=== PATIENT | female | born 1925 | race Caucasian/White ===

== ENCOUNTER 2017-02-21 12:20 | Emergency (ER) | payer MEDICARE ==
[~2017-02-21] VITALS: Ht 154.9 cm; Wt 74.0 kg
[~2017-02-21 12:20] MED LIST: ALBU0.08 NEB; AMLO5TAB2 PO; FLEC100T PO; FOSA70TA PO; LEVO75TA3 PO; LIPI20TA PO; LOSA100T PO; MULTTAB67 PO; SYMB80AE INH; TEMA30CA PO; TRAM50TA PO; VITA400T18 PO; VITA500T83 PO
[2017-02-21 12:22] VITALS: BP 130/74; PULSE 100; RESP 18; TEMP 98.1; O2SAT 96
[2017-02-21] MEDS ORDERED: SODIUM CHLORID 0.9% 500 ML INJ 500 ML IV ONE (13:00)
--- NOTE | 2017-02-21 13:01 | PD ---
HPI Chief Complaint: Abdominal Pain Time Seen by Provider: 12:31 Travel History International Travel<30 days: No Contact w/Intl Traveler<30days: No Traveled to known affect area: No History of Present Illness HPI 89-year-old female that presents to the ED for evaluation of abdominal pain. Per patient's in the mid epigastric area. Per patient does not go anywhere. Per patient she's had this since . Feels bloated and painful. Per patient the pain is 7 out of 10. Gets worse with touch and comes and goes. Per patient she currently has it. She denies any changes in bowel movement with the exception of fall on when she had slight diarrhea with the episode of liquid stool. Per patient her stools have been hard since. She does take Tylenol for pain chronically. She states that she has not seen any blood or changes in the consistency of the stool other than on when he was liquidy but not red or dark. She denies any dark stools. She denies any nausea or vomiting. She does state that she ate some slimy sandwich as well as some meatballs and the discomfort started after this. She has not taken anything for it. She has not seen anybody for it. She denies any fevers chills or sweats. No cough or runny nose. No chest pain or shortness of breath. No other medical issues at this time. Allergies to sulfa, adhesives, latex and penicillin. PFSH Past Medical History Hx Anticoagulant Therapy: Yes Asthma: Yes Atrial Fibrillation: Yes Diabetes: No Diminished Hearing: No Gastrointestinal Disorders: Yes (HX OF C. DIFF) Glaucoma: No Hepatitis: No Hypertension: Yes Kidney Stones: No Renal Failure: No Thyroid Disease: No Ulcer: No Past Surgical History Insulin Pump: No Joint Replacement: Yes (right hip, LEFT HIP) Tonsillectomy: Yes Social History Alcohol Use: Yes (WINE MOST DAYS) Tobacco Use: No Substance Use: No Allergies-Medications (Allergen,Severity, Reaction): Coded Allergies: Sulfa (Sulfonamide Antibiotics) (Verified Allergy, Severe, 02/21/17) adhesive (Verified Allergy, Severe, Hives, 02/21/17) latex (Verified Allergy, Severe, Hives, 02/21/17) penicillin G (Verified Allergy, Severe, 02/21/17) Reported Meds & Prescriptions Reported Meds & Active Scripts Active Zofran (Ondansetron HCl) 4 Mg Tab 4 Mg PO Q6HR PRN Cipro (Ciprofloxacin HCl) 500 Mg Tab 500 Mg PO BID 10 Days Bentyl (Dicyclomine HCl) 10 Mg Cap 10 Mg PO TID PRN Flagyl (Metronidazole) 500 Mg Tab 500 Mg PO BID 10 Days Reported Vitamin C ER (Ascorbic Acid) 500 Mg Ese 500 Mg PO DAILY Tramadol (Tramadol HCl) 50 Mg Tab 100 Mg PO PRN PRN Vitamin E (Vitamin E Acid Succinate) 400 Unit Tablet 1 Tab PO DAILY Fosamax (Alendronate Sodium) 70 Mg Tab 1 Tab PO Q7D Multiple Vitamin 1 Tab 1 Tab PO DAILY Symbicort Inh (Budesonide/Formoterol Fumarate) 80-4.5 Mcg/Act Aero 1 Puff INH Q12HR Lipitor (Atorvastatin Calcium) 20 Mg Tab 1 Tab PO HS Losartan (Losartan Potassium) 100 Mg Tab 1 Tab PO DAILY Amlodipine (Amlodipine Besylate) 5 Mg Tab 1 Tab PO DAILY Flecainide (Flecainide Acetate) 100 Mg Tab 1 Tab PO BID Levothyroxine (Levothyroxine Sodium) 75 Mcg Tab 1 PO DAILY Review of Systems Except as stated in HPI: all other systems reviewed are Neg Physical Exam Narrative GENERAL: SKIN: Warm and dry. HEAD: Atraumatic. Normocephalic. EYES: Pupils equal and round. No scleral icterus. No injection or drainage. ENT: No nasal bleeding or discharge. Mucous membranes pink and moist. Tongue is midline. No uvula deviation. NECK: Trachea midline. No JVD. CARDIOVASCULAR: Regular rate and rhythm. RESPIRATORY: No accessory muscle use. Clear to auscultation. Breath sounds equal bilaterally. GASTROINTESTINAL: Abdomen soft, tender to touch in the mid gastric area around the umbilical area, nondistended. Hepatic and splenic margins not palpable. MUSCULOSKELETAL: Extremities without clubbing, cyanosis, or edema. No obvious deformities. Full range of motion of the upper and lower extremities bilaterally. 2+ pulses bilaterally. NEUROLOGICAL: Awake and alert. No obvious cranial nerve deficits. Motor grossly within normal limits. Five out of 5 muscle strength in the arms and legs. Normal speech. PSYCHIATRIC: Appropriate mood and affect; insight and judgment normal. Data Data Last Documented VS Vital Signs Date Time Temp Pulse Resp B/P (MAP) Pulse Ox O2 Delivery O2 Flow Rate FiO2 12/24/17 13:48 97 Room Air 02/21/17 12:36 18 02/21/17 12:22 98.1 100 Orders Orders Complete Blood Count With Diff (02/21/17 12:46) Comprehensive Metabolic Panel (02/21/17 12:46) Lipase (02/21/17 12:46) Lactic Acid (02/21/17 12:46) Prothrombin Time / Inr (Pt) (02/21/17 12:46) Act Partial Throm Time (Ptt) (02/21/17 12:46) Urinalysis - C+S If Indicated (02/21/17 12:46) Ct Abd/Pel W Iv Contrast(Rout) (02/21/17 12:46) Iv Access Insert/Monitor (02/21/17 12:46) Ecg Monitoring (02/21/17 12:46) Oximetry (02/21/17 12:46) Electrocardiogram (02/21/17 12:46) Sodium Chlorid 0.9% 500 Ml Inj (Ns 500 M (02/21/17 13:00) Iohexol 350 Inj (Omnipaque 350 Inj) (02/21/17 15:04) Metronidazole 500 Mg Inj (Flagyl 500 Mg (02/21/17 15:45) Ciprofloxacin 400 Mg Premix (Cipro 400 M (02/21/17 15:45) Ed Discharge Order (02/21/17 15:48) Labs Laboratory Tests Test 02/21/17 12:48 02/21/17 12:49 Lactic Acid Level 0.9 mmol/L White Blood Count 10.2 TH/MM3 Red Blood Count 4.36 MIL/MM3 Hemoglobin 14.3 GM/DL Hematocrit 42.1 % Mean Corpuscular Volume 96.4 FL Mean Corpuscular Hemoglobin 32.8 PG Mean Corpuscular Hemoglobin Concent 34.0 % Red Cell Distribution Width 12.9 % Platelet Count 221 TH/MM3 Mean Platelet Volume 8.4 FL Neutrophils (%) (Auto) 80.1 % Lymphocytes (%) (Auto) 12.8 % Monocytes (%) (Auto) 5.4 % Eosinophils (%) (Auto) 0.8 % Basophils (%) (Auto) 0.9 % Neutrophils # (Auto) 8.2 TH/MM3 Lymphocytes # (Auto) 1.3 TH/MM3 Monocytes # (Auto) 0.5 TH/MM3 Eosinophils # (Auto) 0.1 TH/MM3 Basophils # (Auto) 0.1 TH/MM3 CBC Comment AUTO DIFF Differential Comment AUTO DIFF CONFIRMED Prothrombin Time 10.5 SEC Prothromb Time International Ratio 1.0 RATIO Activated Partial Thromboplast Time 29.2 SEC Blood Urea Nitrogen 14 MG/DL Creatinine 0.96 MG/DL Random Glucose 99 MG/DL Total Protein 6.9 GM/DL Albumin 3.4 GM/DL Calcium Level 9.2 MG/DL Alkaline Phosphatase 74 U/L Aspartate Amino Transf (AST/SGOT) 16 U/L Alanine Aminotransferase (ALT/SGPT) 20 U/L Total Bilirubin 0.8 MG/DL Sodium Level 140 MEQ/L Potassium Level 4.2 MEQ/L Chloride Level 107 MEQ/L Carbon Dioxide Level 27.3 MEQ/L Anion Gap 6 MEQ/L Estimat Glomerular Filtration Rate 55 ML/MIN Lipase 161 U/L MDM Medical Decision Making Medical Screen Exam Complete: Yes Emergency Medical Condition: Yes Medical Record Reviewed: Yes Interpretation(s) Last Impressions Abdomen/Pelvis CT 02/21/17 1246 Signed Impressions: Service Date/Time: Tuesday, February 21, 2017 14:54 - CONCLUSION: 1. Acute diverticulitis of the mid sigmoid colon. No evidence of adrenal abscess or free air. 2. Left lobe hepatic enhancing lesion very likely to represent a hemangioma. Unchanged in size from prior noncontrast CT of 2014. Kobi Kaur MD CBC & BMP Diagram 02/21/17 12:49 Total Protein 6.9, Albumin 3.4, Calcium Level 9.2, Alkaline Phosphatase 74, Aspartate Amino Transf (AST/SGOT) 16, Alanine Aminotransferase (ALT/SGPT) 20, Total Bilirubin 0.8 Lipase within normal limits. Differential Diagnosis Abdominal pain versus constipation versus obstruction versus partial obstruction versus gastroenteritis versus pancreatitis versus appendicitis Narrative Course 89-year-old female that presents to the ED for evaluation of abdominal pain. Patient was properly examined and was found to have signs and symptoms consistent appears to be abdominal pain. Unclear etiology at this time. Patient does appear to be significantly tender on exam. Her abdomen otherwise is benign. This time I recommend labs and imaging. Patient agrees with this. Labs and imaging were positive for mild diverticulitis. This time no sign of acute disease otherwise. Patient appears to be benign and her physical exam is for the most part reassuring. My attending Dr. Diana evaluated the patient and agrees with discharge. This time patient was given a dose of IV Flagyl and Cipro and a prescription for this medications as well. Patient was given prescription for Bentyl and Zofran to help with her symptoms. She was told that she needs to follow-up closely with PCP. See ED for any worsening symptoms. She agrees with plan. Diagnosis Primary Impression: Diverticulitis Patient Instructions: General Instructions Additional Instructions: Take medications as prescribed. Follow with PCP. See ED worsening symptoms. Liquid diet as needed. Med/Other Pt SpecificInfo: Prescription(s) given Scripts Ondansetron (Zofran) 4 Mg Tab 4 MG PO Q6HR Y for NAUSEA OR VOMITING, #15 TAB 0 Refills Prov: Jeremias Diana MD 02/21/17 Ciprofloxacin (Cipro) 500 Mg Tab 500 MG PO BID for Infection for 10 Days, #20 TAB 0 Refills Prov: Jeremias Diana MD 02/21/17 Dicyclomine (Bentyl) 10 Mg Cap 10 MG PO TID Y for Bowel Management, #15 CAP 0 Refills Prov: Jeremias Diana MD 02/21/17 Metronidazole (Flagyl) 500 Mg Tab 500 MG PO BID for Infection for 10 Days, #20 TAB 0 Refills Prov: Jeremias Diana MD 02/21/17 Disposition: 01 DISCHARGE HOME Condition: Stable Flako Krause Feb 21, 2017 13:01
[2017-02-21 13:09] LABS: AUTOMATED NEUTROPHIL # 8.2 TH/MM3 (1.8-7.7); BASOPHIL # 0.1 TH/MM3 (0-0.2); BASOPHIL % 0.9 % (0.0-2.0); EOSINOPHIL # 0.1 TH/MM3 (0-0.4); EOSINOPHIL % 0.8 % (0.0-4.0); HEMATOCRIT 42.1 % (35.0-46.0); HEMOGLOBIN 14.3 GM/DL (11.6-15.3); LYMPH % 12.8 % (9.0-44.0); LYMPHOCYTE # 1.3 TH/MM3 (1.0-4.8); MEAN CELL VOLUME 96.4 FL (80.0-100.0); MEAN CORPUSCULAR HEMOGLOBIN 32.8 PG (27.0-34.0); MEAN PLATELET VOLUME 8.4 FL (7.0-11.0); MONO % 5.4 % (0.0-8.0); MONOCYTE # 0.5 TH/MM3 (0-0.9); NEUT % 80.1 % (16.0-70.0); PLATELET COUNT 221 TH/MM3 (150-450); RED BLOOD COUNT 4.36 MIL/MM3 (4.00-5.30); RED CELL DISTRIBUTION WIDTH 12.9 % (11.6-17.2); WHITE BLOOD COUNT 10.2 TH/MM3 (4.0-11.0)
[2017-02-21 13:10] LABS: PROTHROMBIN TIME - PATIENT 10.5 SEC (9.8-11.6)
[2017-02-21 13:19] LABS: ALBUMIN 3.4 GM/DL (3.4-5.0); ALT (GPT) 20 U/L (10-53); AST (GOT) 16 U/L (15-37); BICARBONATE 27.3 MEQ/L (21.0-32.0); BLOOD UREA NITROGEN 14 MG/DL (7-18); CALCIUM 9.2 MG/DL (8.5-10.1); CHLORIDE 107 MEQ/L (98-107); CREATININE 0.96 MG/DL (0.50-1.00); GLOMERULAR FILTRATION RATE 55 ML/MIN (>89); GLUCOSE,RANDOM 99 MG/DL (74-106); LIPASE 161 U/L (73-393); SODIUM (NA) 140 MEQ/L (136-145)
[2017-02-21 13:21] LABS: ALKALINE PHOSPHATASE 74 U/L (45-117); TOTAL BILIRUBIN ADULT 0.8 MG/DL (0.2-1.0); TOTAL PROTEIN 6.9 GM/DL (6.4-8.2)
[2017-02-21 13:48] VITALS: O2SAT 97
[2017-02-21] MEDS ORDERED: IOHEXOL 350 MG/ML 10 ML VIAL (for RAD DIAG) IVCONTRAST ONE (15:04)
--- NOTE | 2017-02-21 15:25 | RADRPT ---
EXAM DATE/TIME: 02/21/2017 14:54 [facility] COMPARISON: CT ABDOMEN & PELVIS W/O CONTRAST, February 18, 2015, 7:53. INDICATIONS : Umbilical abdomen pain for four days. IV CONTRAST: 80 cc Omnipaque 350 (iohexol) IV ORAL CONTRAST: No oral contrast ingested. RADIATION DOSE: 10.73 CTDIvol (mGy) MEDICAL HISTORY : Hypertension. SURGICAL HISTORY : Bilateral hip replacements. ENCOUNTER: Initial ACUITY: 4 - 6 days PAIN SCALE: 8/10 LOCATION: abdomen TECHNIQUE: Volumetric scanning of the abdomen and pelvis was performed. Using automated exposure control and ad justment of the mA and/or kV according to patient size, radiation dose was kept as low as reasonably achievable to obtain optimal diagnostic quality images. DICOM format image data is available electro nically for review and comparison. FINDINGS: LOWER LUNGS: Minimal atelectasis at the lung bases. LIVER: 2.3 cm lesion in the left lobe of the liver bed demonstrates peripheral enhancement. This is unchange d in size from noncontrast CT of 02/18/2015. It is very likely to represent a hemangioma. Gallbladder is unremarkable. SPLEEN: Normal size without lesion. PANCREAS: Within normal limits. KIDNEYS: Normal in size and shape. There is no mass, stone or hydronephrosis. ADRENAL GLANDS: Within normal limits. VASCULAR: Diffusely tortuous and calcified abdominal aorta. Diameter is within normal limits. BOWEL/MESENTERY: Numerous colonic diverticula. Focal wall thickening and surrounding inflammatory changes of the mid s igmoid colon indicating acute diverticulitis. No organized drainable abscess. No free air. No evidenc e of bowel dilatation. Appendix is not identified. Trace free fluid. ABDOMINAL WALL: Within normal limits. RETROPERITONEUM: There is no lymphadenopathy. BLADDER: No wall thickening or mass. REPRODUCTIVE: Within normal limits. INGUINAL: There is no lymphadenopathy or hernia. MUSCULOSKELETAL: Bilateral hip prostheses. Prominent degenerative findings lumbar spine. CONCLUSION: 1. Acute diverticulitis of the mid sigmoid colon. No evidence of adrenal abscess or free air. 2. Left lobe hepatic enhancing lesion very likely to represent a hemangioma. [facility]. Kobi Kaur MD on February 21, 2017 at 15:17 Board Certified Radiologist. This report was verified electronically.
--- NOTE | 2017-02-21 15:34 | PD ---
Data Data Last Documented VS Vital Signs Date Time Temp Pulse Resp B/P (MAP) Pulse Ox O2 Delivery O2 Flow Rate FiO2 02/21/17 15:53 90 18 143/73 (96) 97 Room Air 02/21/17 12:22 98.1 Orders Orders Complete Blood Count With Diff (02/21/17 12:46) Comprehensive Metabolic Panel (02/21/17 12:46) Lipase (02/21/17 12:46) Lactic Acid (02/21/17 12:46) Prothrombin Time / Inr (Pt) (02/21/17 12:46) Act Partial Throm Time (Ptt) (02/21/17 12:46) Urinalysis - C+S If Indicated (02/21/17 12:46) Ct Abd/Pel W Iv Contrast(Rout) (02/21/17 12:46) Iv Access Insert/Monitor (02/21/17 12:46) Ecg Monitoring (02/21/17 12:46) Oximetry (02/21/17 12:46) Electrocardiogram (02/21/17 12:46) Sodium Chlorid 0.9% 500 Ml Inj (Ns 500 M (02/21/17 13:00) Iohexol 350 Inj (Omnipaque 350 Inj) (02/21/17 15:04) Metronidazole 500 Mg Inj (Flagyl 500 Mg (02/21/17 15:45) Ciprofloxacin 400 Mg Premix (Cipro 400 M (02/21/17 15:45) Ed Discharge Order (02/21/17 15:48) Labs Laboratory Tests Test 02/21/17 12:48 02/21/17 12:49 Lactic Acid Level 0.9 mmol/L White Blood Count 10.2 TH/MM3 Red Blood Count 4.36 MIL/MM3 Hemoglobin 14.3 GM/DL Hematocrit 42.1 % Mean Corpuscular Volume 96.4 FL Mean Corpuscular Hemoglobin 32.8 PG Mean Corpuscular Hemoglobin Concent 34.0 % Red Cell Distribution Width 12.9 % Platelet Count 221 TH/MM3 Mean Platelet Volume 8.4 FL Neutrophils (%) (Auto) 80.1 % Lymphocytes (%) (Auto) 12.8 % Monocytes (%) (Auto) 5.4 % Eosinophils (%) (Auto) 0.8 % Basophils (%) (Auto) 0.9 % Neutrophils # (Auto) 8.2 TH/MM3 Lymphocytes # (Auto) 1.3 TH/MM3 Monocytes # (Auto) 0.5 TH/MM3 Eosinophils # (Auto) 0.1 TH/MM3 Basophils # (Auto) 0.1 TH/MM3 CBC Comment AUTO DIFF Differential Comment AUTO DIFF CONFIRMED Prothrombin Time 10.5 SEC Prothromb Time International Ratio 1.0 RATIO Activated Partial Thromboplast Time 29.2 SEC Blood Urea Nitrogen 14 MG/DL Creatinine 0.96 MG/DL Random Glucose 99 MG/DL Total Protein 6.9 GM/DL Albumin 3.4 GM/DL Calcium Level 9.2 MG/DL Alkaline Phosphatase 74 U/L Aspartate Amino Transf (AST/SGOT) 16 U/L Alanine Aminotransferase (ALT/SGPT) 20 U/L Total Bilirubin 0.8 MG/DL Sodium Level 140 MEQ/L Potassium Level 4.2 MEQ/L Chloride Level 107 MEQ/L Carbon Dioxide Level 27.3 MEQ/L Anion Gap 6 MEQ/L Estimat Glomerular Filtration Rate 55 ML/MIN Lipase 161 U/L MDM Supervised Visit with ERNESTO: Yes Narrative Course I, Dr. Diana, have reviewed the advance practice practitioner's documentation and am in agreement, met with the patient face to face, made the diagnosis, and the medical decision making was done by me. *My assessment and Findings: Patient seen and examined by me in addition to Flako Krause PA-C, patient has fairly benign abdomen at this time, she had one tender moment to palpation of the left upper quadrant but this was not reproducible. Patient appears well none toxic labs are reassuring. Discussed with her symptomatic management returned ED criteria for diverticulitis. She is stable for discharge Scripts Ondansetron (Zofran) 4 Mg Tab 4 MG PO Q6HR Y for NAUSEA OR VOMITING, #15 TAB 0 Refills Prov: Jeremias Diana MD 02/21/17 Ciprofloxacin (Cipro) 500 Mg Tab 500 MG PO BID for Infection for 10 Days, #20 TAB 0 Refills Prov: Jeremias Diana MD 02/21/17 Dicyclomine (Bentyl) 10 Mg Cap 10 MG PO TID Y for Bowel Management, #15 CAP 0 Refills Prov: Jeremias Diana MD 02/21/17 Metronidazole (Flagyl) 500 Mg Tab 500 MG PO BID for Infection for 10 Days, #20 TAB 0 Refills Prov: Jeremias Diana MD 02/21/17 Condition: Stable Jeremias Diana MD Feb 21, 2017 15:34
[2017-02-21] MEDS ORDERED: ZOFR4TAB PO (15:38)
[2017-02-21] MEDS ORDERED: METR-1 PO (15:38)
[2017-02-21] MEDS ORDERED: DICY10 PO (15:38)
[2017-02-21] MEDS ORDERED: CIPR-9 PO (15:38)
[2017-02-21] MEDS ORDERED: CIPROFLOXACIN 400 MG PREMIX 200 ML IV ONE (15:45)
[2017-02-21] MEDS ORDERED: metroNIDAZOLE 500 MG INJ 100 ML IV ONE (15:45)
[2017-02-21 15:53] VITALS: BP 143/73; PULSE 90; RESP 18; O2SAT 97
--- NOTE | 2017-02-21 15:59 | EKG ---
Date Performed: 02/21/2017 Time Performed: 13:54:10 PTAGE: 89 years EKG: PROBABLE Sinus rhythm WITH PACS LEFT AXIS DEVIATION POSSIBLE RIGHT VENTRICULAR CONDUCTION DELAY NONSPECIFIC T-WAVE ABNORMA LITY ABNORMAL ECG PREVIOUS TRACING : 06/12/2003 10.57 Compared to previous tracing, heart rate has increased, PAC s are now present. DOCTOR: Thiago Sibley Interpretating Date/Time 02/21/2017 15:58:11
[2017-02-21 18:03] VITALS: BP 140/75
== END 2017-02-21 18:33 | disposition home or self-care (01) ==
LOC: NEPE 12:20
DX: K57.32 Diverticulitis of large intestine without perforation or abscess without bleeding (principal); J45.909 Unspecified asthma, uncomplicated; R94.31 Abnormal electrocardiogram [ECG] [EKG]; I48.91 Unspecified atrial fibrillation; I10 Essential (primary) hypertension; Z72.89 Other problems related to lifestyle; Z79.01 Long term (current) use of anticoagulants
CPT/HCPCS: 74177; 80053; 83605; 83690; 85025; 85610; 85730; 93005; 96361; 96365; 96367; 99285; J0744; J7040; Q9967